=== PATIENT | female | born 1980 | race Caucasian/White ===

== ENCOUNTER 2019-04-28 09:06 | Inpatient (IN) | payer BC, MEDICAID ==
[~2019-04-28 09:06] MED LIST: Bupivacaine 0.5%/EPINEPHrine 1:200,000 50 ML MDV ONE
[2019-04-28] MEDS ORDERED: fentaNYL 250 MCG/5 ML SDV ONE (09:26)
[2019-04-28] MEDS ORDERED: Ondansetron 4 MG/2 ML SDV ONE (09:27)
[2019-04-28] MEDS ORDERED: Glycopyrrolate 0.2 MG/ML 5 ML MDV ONE (09:27)
[2019-04-28] MEDS ORDERED: Succinylcholine 200 MG/10 ML MDV ONE (09:27)
[2019-04-28] MEDS ORDERED: Rocuronium 50 MG/5 ML Vial ONE ×2 (09:27→12:18)
[2019-04-28] MEDS ORDERED: Neostigmine Methylsulfate 1 MG/ML 5 ML Syringe ONE (09:27)
[2019-04-28] MEDS ORDERED: Propofol 200 MG/20 ML SDV ONE (09:27)
[2019-04-28] MEDS ORDERED: Dexamethasone 4 MG/ML SDV ONE (09:27)
[2019-04-28] MEDS ORDERED: Acetaminophen 500 MG Tab PO ONE (09:45)
[2019-04-28] MEDS ORDERED: Dextrose 5%-Lactated Ringers 1,000 ML IV SCH (10:15)
[2019-04-28] MEDS ORDERED: cefOXitin 2 GM in Sodium Chloride 0.9% 50 ML IV ONE (11:15)
[2019-04-28] MEDS ORDERED: Ketamine 500 MG/5 ML MDV IV SCH (11:30)
[2019-04-28] MEDS ORDERED: Ketamine 50 MG in Sodium Chloride 0.9% 49.5 ML IV SCH (11:30)
[2019-04-28] MEDS ORDERED: Meropenem 500 MG SDV ONE (12:05)
[2019-04-28] MEDS ORDERED: ePHEDrine 50 MG/ML SDV ONE (12:11)
[2019-04-28] MEDS ORDERED: Sodium Chloride 0.9% 20 ML ONE (12:11)
[2019-04-28] MEDS ORDERED: fentaNYL 100 MCG/2 ML SDV ONE (12:49)
[2019-04-28] MEDS ORDERED: Lactated Ringers 1,000 ML ONE (12:59)
[2019-04-28] MEDS ORDERED: diphenhydrAMINE 25 MG Cap PO PRN (13:12)
[2019-04-28] MEDS ORDERED: Ondansetron 4 MG/2 ML SDV IVPUSH PRN ×2 (13:12→14:38)
[2019-04-28] MEDS ORDERED: HYDROmorphone/Normal Saline 15 MG/30 ML PCA IV PRN (13:12)
[2019-04-28] MEDS ORDERED: diphenhydrAMINE 50 MG/ML SDV IVPUSH PRN ×2 (13:12→14:38)
[2019-04-28] MEDS ORDERED: Naloxone 0.4 MG/ML SDV IVPUSH PRN (13:12)
[2019-04-28] MEDS: Dextrose 5%-Lactated Ringers 1,000 ML IV SCH ×3 (14:32→22:46)
[2019-04-28] MEDS ORDERED: Labetalol 20 MG/4 ML Syringe IVPUSH PRN (14:38)
[2019-04-28] MEDS ORDERED: Acetaminophen 500 MG Tab PO PRN (14:38)
[2019-04-28] MEDS ORDERED: Metoclopramide 10 MG/2 ML SDV IVPUSH PRN (14:38)
[2019-04-28] MEDS ORDERED: Cyclobenzaprine 10 MG Tab PO PRN (14:38)
[2019-04-28] MEDS ORDERED: hydrOXYzine HCL 100 MG/2 ML SDV IM PRN (14:38)
[2019-04-28] MEDS: Pantoprazole 40 MG Vial IVPUSH SCH (16:41)
[2019-04-28] MEDS: Acetaminophen 500 MG Tab PO SCH (16:41)
[2019-04-28] MEDS: cefOXitin 2 GM in Sodium Chloride 0.9% 50 ML IV SCH ×2 (16:49→22:46)
[2019-04-28] MEDS: MVI, Adult with Vitamin K 10 ML, Thiamine 200 MG, Chromium/Copper/Mang/Selen/Zn 1 ML in... IV SCH ×4 (16:49)
[2019-04-28] MEDS: Heparin Sodium 5,000 Units/ML Vial SUBCUT SCH (18:15)
[2019-04-29] MEDS: Heparin Sodium 5,000 Units/ML Vial SUBCUT SCH ×3 (01:04→17:58)
[2019-04-29] MEDS: Acetaminophen 500 MG Tab PO SCH ×3 (01:04→15:27)
[2019-04-29] MEDS: Dextrose 5%-Lactated Ringers 1,000 ML IV SCH ×2 (04:25→09:48)
[2019-04-29] MEDS: cefOXitin 2 GM in Sodium Chloride 0.9% 50 ML IV SCH ×4 (04:26→22:37)
[2019-04-29] MEDS: Celecoxib 200 MG Cap PO SCH ×2 (08:15→22:38)
[2019-04-29] MEDS: Losartan 50 MG Tab PO SCH (08:15)
[2019-04-29] MEDS: FLUoxetine 20 MG Cap PO SCH (08:16)
[2019-04-29] MEDS ORDERED: Dextrose 5%-Lactated Ringers 1,000 ML IV SCH (12:00)
[2019-04-29] MEDS: MVI, Adult with Vitamin K 10 ML, Thiamine 200 MG, Chromium/Copper/Mang/Selen/Zn 1 ML in... IV SCH ×4 (15:27)
[2019-04-29] MEDS: Pantoprazole 40 MG Vial IVPUSH SCH (15:27)
[2019-04-30] MEDS: Heparin Sodium 5,000 Units/ML Vial SUBCUT SCH ×3 (01:14→17:59)
[2019-04-30] MEDS: Acetaminophen 500 MG Tab PO SCH ×3 (01:14→15:43)
[2019-04-30] MEDS: cefOXitin 2 GM in Sodium Chloride 0.9% 50 ML IV SCH ×3 (04:54→17:55)
[2019-04-30] MEDS ORDERED: Meropenem 500 MG SDV ONE (06:54)
[2019-04-30] MEDS ORDERED: Bupivacaine 0.5% 50 ML MDV ONE (06:54)
[2019-04-30] MEDS ORDERED: Lidocaine 1% with EPINEPHrine 1:100,000 50 ML MDV ONE (06:55)
[2019-04-30] MEDS ORDERED: fentaNYL 100 MCG/2 ML SDV ONE ×2 (07:02→08:34)
[2019-04-30] MEDS ORDERED: Midazolam 1 MG/ML 2 ML SDV ONE (07:02)
[2019-04-30] MEDS ORDERED: Propofol 200 MG/20 ML SDV ONE ×4 (07:03→08:12)
[2019-04-30] MEDS ORDERED: Lactated Ringers 1,000 ML ONE (07:43)
[2019-04-30] MEDS ORDERED: Dextrose 5%-Lactated Ringers 1,000 ML IV SCH (09:30)
[2019-04-30] MEDS: Losartan 50 MG Tab PO SCH (09:35)
[2019-04-30] MEDS: FLUoxetine 20 MG Cap PO SCH (09:35)
[2019-04-30] MEDS: Celecoxib 200 MG Cap PO SCH ×2 (09:35→20:35)
[2019-04-30] MEDS: Bisacodyl 5 MG Tab PO SCH ×2 (09:36→20:36)
[2019-04-30] MEDS: Docusate Sodium 100 MG Cap PO SCH ×2 (09:36→20:35)
[2019-04-30] MEDS: oxyCODONE 5 MG Tab PO PRN ×3 (10:01→20:34)
[2019-04-30] MEDS: MVI, Adult with Vitamin K 10 ML, Thiamine 200 MG, Chromium/Copper/Mang/Selen/Zn 1 ML in... IV SCH ×4 (15:43)
[2019-04-30] MEDS ORDERED: Pantoprazole 40 MG Delayed-Release Granules 1 Packet PO SCH (16:30)
[2019-04-30] MEDS ORDERED: diphenhydrAMINE 25 MG Cap PO PRN (20:00)
[2019-04-30] MEDS ORDERED: Metoclopramide 10 MG Tab PO PRN (20:01)
[2019-04-30] MEDS ORDERED: Ondansetron 4 MG Tab.DIS PO PRN (20:02)
[2019-05-01] MEDS: Heparin Sodium 5,000 Units/ML Vial SUBCUT SCH ×2 (01:13→10:54)
[2019-05-01] MEDS: Acetaminophen 500 MG Tab PO SCH ×2 (01:13→07:56)
[2019-05-01] MEDS: oxyCODONE 5 MG Tab PO PRN ×2 (06:53→10:54)
[2019-05-01] MEDS: Docusate Sodium 100 MG Cap PO SCH (08:00)
[2019-05-01] MEDS: Celecoxib 200 MG Cap PO SCH (08:00)
[2019-05-01] MEDS: Losartan 50 MG Tab PO SCH (08:00)
[2019-05-01] MEDS: Bisacodyl 5 MG Tab PO SCH (08:01)
[2019-05-01] MEDS: FLUoxetine 20 MG Cap PO SCH (08:01)
--- NOTE | 2019-05-01 08:59 | PN ---
DATE OF SERVICE: 04/29/2019 The patient has been afebrile with stable vital signs. She does get tachycardia with motion, which is probably related to underlying obesity. Otherwise, she is showing no major problems. We will keep her on a clear liquid diet today. Urine output is still a little bit marginal. Creatinine is down a little bit from preop from 1.5 to 1.3, so she is doing okay in that regard, but we will leave the IV rate running fast over the next 24 hours, along with Mukherjee catheter to monitor urine output. Plan is to proceed with delayed primary closure tomorrow, at which time we will switch over to oral pain medication. Raj Mcelroy MD /[id number]
--- NOTE | 2019-05-01 13:32 | PN ---
DATE OF SERVICE: 04/30/2019 The patient has been afebrile with stable vital signs. No major problems have been noted overnight. The patient underwent delayed primary closure of abdominal incision today and Mukherjee catheter was removed. We will go up to regular diet to get some bowel stimulation and we will go over to oral pain medication. She may be ready for discharge home tomorrow. Raj Mcelroy MD /[id number]
--- NOTE | 2019-05-02 02:14 | DISCH ---
ADMISSION DIAGNOSES: 1. Left ovarian cyst. 2. Morbid obesity, body mass index 64.53. 3. Hypertension. 4. Depression. DISCHARGE DIAGNOSES: 1. Diagnostic laparoscopy turned to laparotomy with;. a. Left salpingo-oophorectomy. b. Partial omentectomy. c. Wedge resection, adherent sigmoid colon, and drainage of dave cystic abscess. 2. Large left ovarian cyst, 3 pounds 12 ounces with adherent omentum, sigmoid colon, associated with dave cystic abscess between omentum and abdominal wall and cyst, date of surgery, 04/28/2019. Surgeon, Raj Mcelroy MD. HISTORY: Marcia Fuchs is a 38-year-old female who is referred from [place], [place] by Morgan Clark MD, for a left ovarian cysts with surgery complicated by morbid obesity. After preoperative evaluation and discussion of possible risks and possible complications, she wished to proceed with surgical procedure. HOSPITAL COURSE: Marcia had her surgery on 04/28/2019. She had no operative complications. On postoperative day #1, her IV was decreased, her Mukherjee was discontinued, and she was she continued with the [employer]ICINE TE[employer]ER. On postoperative day #2, she was started on oral pain medication, she had delayed primary closure. Her activity was good. She ambulated. Frequently used her IS. Vital signs were stable, and she was able to be discharged to home on postoperative day 3. PHYSICAL EXAMINATION: GENERAL: Marcia is a 38-year-old female, alert, orientated. Height 5 feet 8 inches. Weight is 424 pounds. BMI is 64.5. TPR 98.7, 98, and 18. Blood pressure 136/67. HEENT: Negative. NECK: Supple. HEART: Regular rate and rhythm. LUNGS: Clear. ABDOMEN: Dressings are dry and intact. Abdominal binder is on. EXTREMITIES: Without peripheral edema. DISPOSITION: Discharged to home. CONDITION: Stable and improving. FOLLOWUP: Followup appointment with Raj Mcelroy MD at [facility] on 05/10/2019 at 11 a.m. HOME PRESCRIPTIONS: 1. Oxycodone 5 mg every 4 hours p.r.n. pain, #42. 2. Tylenol Extra Strength 1000 mg every 8 hours, scheduled for pain. 3. Celebrex 200 mg b.i.d., #28. 4. She is to resume home medication of Prozac 40 mg daily and losartan 100 mg oral daily. DIET: Usual diet as tolerated. Drink 8 to 10 glasses of water a day. ACTIVITY: No lifting greater than 10 pounds for 6 weeks. Other activity: Walk at least 6 times daily inside your home. Driving: Do not drive for 1 week and while on oxycodone. Shower/Bathing: May shower. DISCHARGE INSTRUCTIONS: 1. Notify provider if any fever, increased pain, swelling, redness, drainage, nausea, or vomiting. Keep site clean and dry. Wound incision care strip. Empty measure and record WENDY drainage 4 times a day. Bring record of WENDY drainage to clinic appointment. 2. Take off Aquacel dressing on , 05/04/2019, leave incision open or cover lightly with gauze. Wear abdominal binder for 6 weeks. SPECIAL INSTRUCTION: Use incentive spirometer 10 times every hour while awake for 1 week.
--- NOTE | 2019-05-08 11:42 | OR ---
DATE OF PROCEDURE: 04/28/2019 SURGEON: Raj Mcelroy MD PREOPERATIVE DIAGNOSIS: Large right ovarian cyst. POSTOPERATIVE DIAGNOSES: Large left semisolid ovarian cyst with adherent omentum at sigmoid colon and associated pericystic abscess (between omentum, abdominal wall, and cyst). OPERATIVE PROCEDURES: Diagnostic laparoscopy converted to laparotomy with, 1. Left salpingo-oophorectomy including large ovarian cyst (14833). 2. Partial omentectomy (40269). 3. Wedge excision of adherent sigmoid colon (40770). 4. Drainage of pericystic abscess (40749). ANESTHESIA: General. AUDIOPROSTHOLOGIST: Lien Lyons PA-C INDICATION FOR PROCEDURE: This is a 38-year-old female presenting with a progressively enlarging ovarian cyst. This is felt to be coming from the right side. By preoperative imaging, it was felt to be a simple cyst amenable to a laparoscopic drainage and excision. The plan is to proceed with a laparoscopy with laparotomy if necessary, and removal of the cyst with additional procedures as indicated. Potential risks of the procedure including bleeding, infection, injury to underlying viscera, possibility of the lesion may be malignant requiring a more extensive procedure were all reviewed with the patient along with the possibility of cardiopulmonary, septic, or hemorrhagic complications leading to were all discussed, and the patient wishes to proceed. DETAILS OF PROCEDURE: The patient was taken to the operating room and placed in a supine position. After general endotracheal anesthesia was induced, she was converted to a lithotomy position and a Mukherjee catheter was inserted, and the abdomen was prepped and draped. After induction of anesthesia, with the patient being relaxed, she had obvious larger mass effect in the low and mid central abdomen. The peritoneal cavity was then entered with an Optiview trocar in the right upper quadrant and two additional trocars were then placed. Initial examination showed the cyst to be much more complex and thought to be based on preoperative imaging. As one peeled back some omental adhesions, there was some purulence noted between the omentum, cyst, and the anterior abdominal wall with which the entire complex was densely adherent. At that point, we opted to proceed with an open approach given the above findings. Upon removal of the trocars, a midline incision was made from the umbilicus down roughly a handsbreadth above the pubis, carried down through the full-thickness abdominal wall. The area of the abscess between the cyst, omentum, and the anterior abdominal wall was further drained and cultures were obtained. The cyst was quite adherent to the anterior abdominal wall, and this was then with excision of the peritoneum on the anterior abdominal wall, which was adherent to the mesh. This eventually got down to the plane in the pelvis where the cyst was not overtly adherent to the pelvic or abdominal wall. The omentum, at this point, which was quite adherent, was then partially excised using CHRISTINE erick. As the cyst was mobilized upward, it was noted then to be adherent to the sigmoid colon. A wedge excision of sigmoid colon was then accomplished with a CHRISTINE purple load and that segment of colon was subsequently delivered with the attached cyst. At that point, it became evident that the cyst was in fact coming from the left adnexa. The right tube and ovary were entirely normal at this point as was the uterus. There was no peritoneal implant suggestive of metastatic disease. The cyst appeared to have rotated on itself causing to probably become hemorrhagic cyst. The attachments of the uterus and the vascular supply coming from the abdomen, lateral pelvic wall to the left adnexa were divided with CHRISTINE erick, and the specimen delivered from the field. It was weighed and found to be 3 pounds 12 ounces. At this point, it appeared most likely we were dealing with a likely benign cyst that had undergone some torsion and hemorrhage along with some hemorrhagic necrosis and rather than empirically opting toward a full-staging procedure, we elected to conclude the procedure at this point noting that if malignancy is identified, we will need to re-explore the patient for a full-staging procedure. The abdomen was irrigated with antibiotic-containing saline solution. A Shilo-Causey drain was taken out through the right lateral abdominal wall, taken down into the pelvis. The midline fascia was then approximated with #2 Vicryl stitch. With the contamination associated with abscess, the skin and subcutaneous tissue were packed open for a planned delayed primary closure in 48 hours. The patient was taken to the recovery room in satisfactory condition. There were no evident complications. Physician radiology assistant, Lien Lyons, played an essential role in assisting in this case, helping to position the patient, retract structures as needed, as well as suturing and cutting sutures as indicated. Her presence improved patient safety and decreased the operative time. Raj Mcelroy MD /[id number]
--- NOTE | 2019-05-08 12:39 | OR ---
DATE OF PROCEDURE: 04/30/2019 SURGEON: Raj Mcelroy MD PREOPERATIVE DIAGNOSIS: Open abdominal incision. POSTOPERATIVE DIAGNOSIS: Open abdominal incision. OPERATIVE PROCEDURE: Delayed primary closure of open abdominal incision. ANESTHESIA: Local plus IV sedation. INDICATIONS FOR PROCEDURE: The patient underwent an open laparotomy for removal of large ovarian cyst along with additional procedures, one of which included drainage of the abscess between the cyst, omentum, and the anterior abdominal wall. Given the contaminated nature of the procedure, the skin and subcutaneous tissue were left open for planned delayed primary closure to limit the chances of wound infection. Potential risks including bleeding and infection were reviewed, and the patient wishes to proceed. DETAILS OF PROCEDURE: The patient was taken to the operating room and placed in a supine position. IV sedation was administered after which the previously dressed wound was exposed, inspected, and found to be quite clean. Wound was then prepped and draped, anesthetized with 1% lidocaine mixed with Marcaine. Given the large depth of the subcutaneous tissue with this patient having a BMI in the 66 range, a 10-English round Shilo-Causey drain was placed through a stab wound adjacent to the lower end of the incision and sutured there with some 3-0 Vicryl stitch. Over this, then 2 layers of 3-0 and 4-0 Vicryl stitches were then placed in the subcutaneous tissue and the skin closed with erick. Dressing was applied. The patient was taken to recovery room in satisfactory condition. There were no evident complications. Raj Mcelroy MD /[id number]
== END 2019-05-01 11:30 | disposition home or self-care (01) | DRG 742 ==
LOC: JP.SDS 09:06 → JP.SDSSCHI 09:06 → EDSTATUS 12:15 → JP.MS 13:10
PROVIDERS: ADMIT Surgery; ATTEND Surgery
PROC: 0UT60ZZ Resection of Left Fallopian Tube, Open Approach (ICD-10-PCS; principal; 2019-04-28)
PROC: 0UT10ZZ Resection of Left Ovary, Open Approach (ICD-10-PCS; 2019-04-28)
PROC: 0DBU0ZZ Excision of Omentum, Open Approach (ICD-10-PCS; 2019-04-28)
PROC: 0DBN0ZZ Excision of Sigmoid Colon, Open Approach (ICD-10-PCS; 2019-04-28)
PROC: 0D9W0ZZ Drainage of Peritoneum, Open Approach (ICD-10-PCS; 2019-04-28)
DX: N83.202 Unspecified ovarian cyst, left side (principal); Z68.44 Body mass index [BMI] 60.0-69.9, adult; E66.01 Morbid (severe) obesity due to excess calories; I10 Essential (primary) hypertension; F32.9 Major depressive disorder, single episode, unspecified; Z90.89 Acquired absence of other organs; Z53.31 Laparoscopic surgical procedure converted to open procedure
CPT/HCPCS: 36415; 51702; 80053; 81025; 83735; 83880; 84100; 85025; 85027; 86304; 87070; 87075; 87205; 88112; 88302; 88305; 88307; 94762; A9270-GY; C9113; J0171; J0330; J0694; J1100; J1170; J1644; J2185; J2250; J2405; J2704; J2710; J2795; J3010; J3411; J3490; J7050; J7120; J7121